=== PATIENT | female | born 2000 | race Caucasian/White ===

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

== ENCOUNTER 2021-01-11 20:58 | Emergency (ER) | payer MEDICAID ==
[~2021-01-11] VITALS: Ht 172.7 cm; Wt 79.4 kg
[~2021-01-11 20:58] MED LIST: LAM25 PO
[2021-01-11 21:24] VITALS: BP_SYST 140
[2021-01-11] MEDS ORDERED: NAPR-686 PO (23:05)
[2021-01-11] MEDS ORDERED: NEOMYCIN/POLYMYX B/HYDROCORTISONE 10 ML EAR DROPS.SUSP OT ONE (23:15)
[2021-01-11 23:50] VITALS: BP_SYST 128
== END 2021-01-11 23:50 | disposition home or self-care (01) ==
LOC: SED 20:58 → EDBD 20:58 → EDSEX 20:58 → SED 23:50
DX: T16.2XXA Foreign body in left ear, initial encounter (principal); F31.9 Bipolar disorder, unspecified; Z79.899 Other long term (current) drug therapy; X58.XXXA Exposure to other specified factors, initial encounter; Y93.89 Activity, other specified; Y92.89 Other specified places as the place of occurrence of the external cause; Y99.8 Other external cause status
CPT/HCPCS: 99284

== ENCOUNTER 2023-03-02 01:08 | Emergency (ER) | payer MEDICAID ==
[~2023-03-02] VITALS: Ht 170.2 cm; Wt 86.2 kg
[2023-03-02 01:08] VITALS: BP_SYST 154; PULSE 97; RESP 18; TEMP 100.7; O2SAT 98
[~2023-03-02 01:08] MED LIST changes: +NAPR-686 PO
[2023-03-02] MEDS ORDERED: NAPR-688 PO (01:28)
[2023-03-02] MEDS ORDERED: NEOM10SO7 LEFT EAR (01:28)
[2023-03-02 01:37] VITALS: BP_SYST 141; PULSE 94; RESP 16; TEMP 100.7; O2SAT 97
== END 2023-03-02 01:35 | disposition home or self-care (01) ==
LOC: SED 01:08
DX: H60.92 Unspecified otitis externa, left ear (principal); H92.02 Otalgia, left ear; Z79.899 Other long term (current) drug therapy
CPT/HCPCS: 99283